=== PATIENT | female | born 1940 | race Hispanic/Latino ===

== ENCOUNTER 2021-03-06 11:07 | Emergency (ER) | payer MEDICARE ==
[~2021-03-06] VITALS: Ht 160 cm; Wt 75.4 kg
[2021-03-06] MEDS ORDERED: ONDANSETRON HCL INJ 2MG/ML 2ML 2 MG/ML VIAL IV STA (12:11)
[2021-03-06] MEDS ORDERED: HYDROCODONE/APAP 5MG-325MG TAB PO ONE (12:15)
[2021-03-06] MEDS ORDERED: SODIUM CHLORIDE 0.9% 1000ML 1,000 ML IV SCH (12:15)
[2021-03-06] MEDS ORDERED: CIPROFLOXACIN 200 MG/D5W 100ML 100 ML IV ONE (12:15)
[2021-03-06] MEDS ORDERED: CIPROFLOXACIN 400 MG/D5W 200ML 200 ML IV ONE (12:24)
[2021-03-06] MEDS ORDERED: HYDROCHLOROTHIA25 MG PO (12:33)
[2021-03-06] MEDS ORDERED: NEXIUM40 MG PO (12:33)
[2021-03-06] MEDS ORDERED: LOSARTAN POTAS100 MG PO (12:33)
[2021-03-06] MEDS ORDERED: METFORMIN HCL500 MG PO (12:33)
[2021-03-06] MEDS ORDERED: CARVEDILOL12.5 MG PO (12:33)
[2021-03-06] MEDS ORDERED: SIMVASTATIN20 MG PO (12:33)
[2021-03-06] MEDS ORDERED: ATIVAN1 MG PO (12:33)
[2021-03-06] MEDS ORDERED: tumeric PO (12:35)
[2021-03-06] MEDS ORDERED: PROBIOTIC250 MG (12:35)
[2021-03-06] MEDS ORDERED: VITAMIN B-121000 MCG PO (12:35)
[2021-03-06] MEDS ORDERED: VITAMIN D3 COM1 EACH PO (12:35)
[2021-03-06] MEDS ORDERED: ONDANSETRON ODT4 MG PO (14:05)
[2021-03-06] MEDS ORDERED: CIPRO500 MG PO (14:07)
== END 2021-03-06 14:23 | disposition home or self-care (01) ==
LOC: FSED 11:30
DX: R19.7 Diarrhea, unspecified (principal); E86.0 Dehydration; N39.0 Urinary tract infection, site not specified; E11.65 Type 2 diabetes mellitus with hyperglycemia; I10 Essential (primary) hypertension; K21.9 Gastro-esophageal reflux disease without esophagitis
CPT/HCPCS: 80053; 81003; 85025; 96374; 99283; J0744 ×2; J2405; J7030

== ENCOUNTER 2022-03-19 17:26 | Emergency (ER) | payer MEDICARE ==
[~2022-03-19] VITALS: Ht 160 cm; Wt 76.3 kg
[~2022-03-19 17:26] MED LIST: ATIVAN1 MG PO; CARVEDILOL12.5 MG PO; CIPRO500 MG PO; HYDROCHLOROTHIA25 MG PO; LOSARTAN POTAS100 MG PO; METFORMIN HCL500 MG PO; NEXIUM40 MG PO; ONDANSETRON ODT4 MG PO; PROBIOTIC250 MG; SIMVASTATIN20 MG PO; VITAMIN B-121000 MCG PO; VITAMIN D3 COM1 EACH PO; tumeric PO
[2022-03-19] MEDS ORDERED: LABETALOL HCL 5 MG/ML 20ML VIAL IV ONE (18:15)
[2022-03-19] MEDS ORDERED: ASPIRIN 81 MG CHEW TAB PO ONE (18:15)
[2022-03-19] MEDS ORDERED: LABETALOL HCL 20 ML ONE (18:45)
[2022-03-19] MEDS ORDERED: ASPIRIN 81 MG CHEW TAB ONE (18:45)
[2022-03-19] MEDS ORDERED: HYDRALAZINE HCL 20 MG/ML VIAL IV STA (19:33)
[2022-03-19] MEDS ORDERED: HYDRALAZINE HCL 20 MG/ML VIAL ONE (20:07)
[2022-03-19 20:30] VITALS: BP 168/71
== END 2022-03-19 20:30 | disposition left against medical advice (07) ==
LOC: FSED 17:52
DX: M79.602 Pain in left arm (principal); I10 Essential (primary) hypertension; R11.2 Nausea with vomiting, unspecified; E11.65 Type 2 diabetes mellitus with hyperglycemia; E78.5 Hyperlipidemia, unspecified; F41.9 Anxiety disorder, unspecified; R94.31 Abnormal electrocardiogram [ECG] [EKG]
CPT/HCPCS: 71046; 80053; 82553; 84484; 85025; 93005; 96374; 99283; J0360; J3490